=== PATIENT | male | born 2000 | race African-American/Black ===

== ENCOUNTER 2019-02-28 14:59 | Emergency (ER) | payer OTHER ==
[2019-02-28 15:15] VITALS: BP 121/66
--- NOTE | 2019-02-28 15:58 | UC ---
Hand/Wrist HPI - HPI Summary HPI Summary: RIGHT HAND WAS JAMMED 2 DAYS AGO WHILE PLAYING BASKETBALL. IS COMPLAINING OF PAIN ACROSS HIS KNUCKLES. NO NUMBNESS OR TINGLING. - History Of Current Complaint Chief Complaint: UCUpperExtremity Stated Complaint: HAND INJURY Time Seen by Provider: 02/28/19 15:17 Hx Obtained From: Patient Onset/Duration: Sudden Onset, Lasting Days, Still Present Severity Initially: Moderate Severity Currently: Moderate Pain Intensity: 5 Pain Scale Used: 0-10 Numeric Character Of Pain: Sharp Aggravating Factor(s): Movement Alleviating Factor(s): OTC Meds - NAPROXEN Associated Signs And Symptoms: Positive: Swelling. Negative: Numbness/Tingling Related History: Dominant Hand Right - Allergies/Home Medications Allergies/Adverse Reactions: Allergies Allergy/AdvReac Type Severity Reaction Status Date / Time No Known Allergies Allergy Verified 02/28/19 15:14 Home Medications: Home Medications Naproxen TAB* [Naprosyn 375 mg TAB*] 1 tab PO BID PRN 02/28/19 [History Confirmed 02/28/19] PMH/Surg Hx/FS Hx/Imm Hx Cardiovascular History: Hypertension - Surgical History Surgical History: None - Family History Known Family History: Positive: Non-Contributory - Social History Alcohol Use: Rare Substance Use Type: None Smoking Status (MU): Former Smoker Review of Systems All Other Systems Reviewed And Are Negative: Yes Constitutional: Positive: Negative Skin: Positive: Negative Respiratory: Positive: Negative Cardiovascular: Positive: Negative Gastrointestinal: Positive: Negative Musculoskeletal: Positive: Arthralgia, Edema. Negative: Decreased ROM Physical Exam Triage Information Reviewed: Yes Appearance: Well-Appearing, No Pain Distress, Well-Nourished Vital Signs: Initial Vital Signs Temp 99 F 02/28/19 15:08 Pulse 47 02/28/19 15:08 Resp 17 02/28/19 15:08 BP 121/66 02/28/19 15:08 Pulse Ox 99 02/28/19 15:08 Vital Signs Reviewed: Yes Eyes: Positive: Conjunctiva Clear ENT: Positive: Hearing grossly normal Neck: Positive: Supple Respiratory: Positive: No respiratory distress, No accessory muscle use Cardiovascular: Positive: Bradycardia Abdomen Description: Positive: Soft Musculoskeletal: Positive: ROM Intact, Edema @ - RIGHT HAND DORSAL SURFACE OVERLYING 4TH AND 5TH METCARPAL BONES, Other: - TTP RIGHT 4TH METACARPAL Neurological: Positive: Alert Psychological: Positive: Age Appropriate Behavior Skin: Negative: Rashes Diagnostics - Radiology RIGHT HAND XRAYS Radiology Interpretation Completed By: Radiologist Summary of Radiographic Findings: NO ACUTE OSSEOUS INJURY Hand/Wrist Course/Dx - Course Course Of Treatment: X-RAY UNREMARKABLE. PATIENT LIKELY WITH A SPRAIN/SOFT TISSUE CONTUSION OF HIS RIGHT HAND. HEMALATHA WRAP FOR COMFORT. REST, ICE, ELEVATE. FOLLOW-UP IF NEEDED. - Differential Dx/Diagnosis Provider Diagnosis: Sprain of right hand Discharge ED - Sign-Out/Discharge Documenting (check all that apply): Patient Departure All imaging exams completed and their final reports reviewed: Yes - Discharge Plan Condition: Stable Disposition: HOME Patient Education Materials: Hand Sprain (ED) Referrals: [facility] [Outside] - If Needed Fuad Estes MD [Medical Doctor] - If Needed Additional Instructions: XRAY TODAY NEGATIVE FOR FRACTURE OR DISLOCATION. YOUR SYMPTOMS SHOULD IMPROVE SIGNIFICANTLY OVER THE NEXT 1-2 WEEKS. IF YOU DO NOT IMPROVE EXPECTED SEEK FOLLOW-UP WITH ORTHO. YOU MAY BENEFIT FROM REPEAT IMAGING AT THAT TIME. OTC IBUPROFEN OR ALEVE NEEDED FOR DISCOMFORT. REST, ICE, COMPRESS, ELEVATE. HEMALATHA WRAP NEEDED FOR SYMPTOM RELIEF. . - Billing Disposition and Condition Condition: STABLE Disposition: Home
== END 2019-02-28 16:10 | disposition home or self-care (01) ==
LOC: UCEAST 14:59
DX: S63.91XA Sprain of unspecified part of right wrist and hand, initial encounter (principal); I10 Essential (primary) hypertension; Z87.891 Personal history of nicotine dependence; W23.0XXA Caught, crushed, jammed, or pinched between moving objects, initial encounter; Y93.67 Activity, basketball; Y92.9 Unspecified place or not applicable
CPT/HCPCS: 99212; G0463